=== PATIENT | female | born 1950 | race Two or more races ===

== ENCOUNTER 2024-08-21 10:55 | Emergency (ER) | payer MEDICARE, MEDICAID, SELFPAY ==
[2024-08-21 10:56] VITALS: BMI 23.6
[2024-08-21 11:31] VITALS: BP 146/79; PULSE 62; RESP 16; TEMP 36.8; O2SAT 98
--- NOTE | 2024-08-21 11:39 | XR_ITS ---
Examination: Hand, left 3 views Technique: Hand AP, oblique, lateral 3 views Date and time of exam: August 21 thousand 25, 1149 hrs. Indications: Patient fell yesterday with injury and And pain. Findings: Severe osteopenia. Spiral fracture fifth metacarpal shaft with no significant displacement No foreign body Impression: Acute fracture fifth metacarpal
--- NOTE | 2024-08-21 11:39 | XR_ITS ---
Examination: PA lateral chest 2 views Technique: Upright PA lateral chest 2 views Exam date and time: August 21, 2024 11:49 AM Comparison July 21, 2013 Indications: Patient fell yesterday with arm and chest pain Findings: Mild prominence left ventricle No pneumothorax Clavicles bones of the shoulders, RIBS intact Old appearing fracture right ninth rib posteriorly and 10th rib posteriorly but clinical correlation advised Impression: No pneumothorax or hemothorax Old appearing fractures right ninth and 10th ribs but clinical correlation advised, recommend right rib series follow-up as clinically warranted
--- NOTE | 2024-08-21 11:39 | XR_ITS ---
Examination: CT brain head without contrast. 2-D sagittal coronal reconstructions Date and time of exam:August 21, 2024 1211 hrs. Indications: Patient fell yesterday with injury to the head, head pain Comparison: November 18, 2010 CTDI: vol (mGy):44.4 DLP: (mGycm):854 Technique: Multiple CT axial sections of the brain have been obtained, 5 mm slice thickness. Contrast has not been administered. 2-D sagittal, coronal reconstructions have been obtained Low dose protocols were performed. One or more of the following dose reduction techniques were used; automated exposure control, adjustment of the mA and/or KV according to patient size, use of iterative reconstruction technique. Findings: No significant ventricular enlargement. Intra-axial or extra-axial hemorrhage density is not seen. No mass effect or midline shift Basal cisterns are not remarkable. Fourth ventricle is midline. Cranial vault intact. Impression: Negative for acute hemorrhage, mass effect or midline shift
--- NOTE | 2024-08-21 11:39 | XR_ITS ---
Examination: Knee bilateral, 6 views Technique: Knee AP, lateral, oblique each knee total 6 views Date and time of exam: August 21, 2024 1149 hrs. Indications: Patient fell yesterday with injury to both knees, bilateral knee pain. Findings: Prominent osteopenia On the oblique view subtle irregularity of the inferior left patella No dislocation Impression: Subtle irregularity inferior left patella, recommend CT left knee without contrast follow-up
--- NOTE | 2024-08-21 12:30 | XR_ITS ---
Examination: CT left knee, without contrast. 2-D sagittal reconstructions. 2-D coronal reconstructions. 3-D reconstructions. Date and time of exam:August 21, 2024, 0105 hrs. Indications: Patient fell today with injury to the knee, knee pain CTDI: vol (mGy):6.33 DLP: (mGycm):153 Technique: Multiple 1.25 mm axial sections of the left knee without intravenous contrast have been obtained. 2-D sagittal and coronal reconstructions have been obtained. 3-D reconstructions have been obtained. Low dose protocols were performed. One or more of the following dose reduction techniques were used; automated exposure control, adjustment of the mA and/or KV according to patient size, use of iterative reconstruction technique. Findings: Distal femur femoral condyles intact No patellar dislocation Widening of the medial patellofemoral joint Visualized tibia fibula intact Small fracture nondisplaced at the inferior aspect of the patella, coronal image 17 Impression: CT examination confirms small patellar fracture at the inferior aspect of the patella, coronal image 17, without significant displacement
--- NOTE | 2024-08-21 14:02 | PD.EDFALL ---
ED Fall Injury RME/HPI General Chief Complaint: Fall Stated Complaint: TRIPPED & FELL; HURT L) HAND; BRANDY KNEES Time Seen by Provider: 08/21/24 11:38 Arrival date/time: 08/21/24 10:55 73-year-old female presents to the emergency department today with complaints of creatinine will fall patient reports that she fell hit her chest and her head and injured her left hand and bilateral knees patient reports the fall was mechanical she was not having any chest pain or dizziness prior to the fall and none since Limitations: no limitations Related Data Previous Rx's ?Medication ?Instructions ?Recorded folic acid 1 mg tablet 1 mg PO QDAY #30 tabs 11/23/23 lisinopril 5 mg tablet 5 mg PO QDAY #30 tabs 11/23/23 pantoprazole 40 mg tablet,delayed 40 mg PO BID #60 tabs 11/23/23 release thiamine HCl (vitamin B1) 50 mg 50 mg PO QDAY #30 tabs 11/23/23 tablet hydrocodone 5 mg-acetaminophen 325 1 tab PO BID PRN pain #10 tabs 08/21/24 mg tablet Allergies Allergy/AdvReac Type Severity Reaction Status Date / Time ampicillin Allergy Unknown Rash Verified 08/21/24 11:00 Penicillins Allergy Unknown UNKNOWN Verified 08/21/24 11:00 Review of Systems Review of Systems Systems Reviewed: All systems reviewed, normal except as documented Constitutional Constitutional: Reports system reviewed and no additional complaints, except as documented, Denies fever(s) and Denies headache(s) Eyes Eyes: Reports system reviewed and no additional complaints, except as documented and Denies blurry vision ENT Ears, Nose, Mouth, and Throat: Reports system reviewed and no additional complaints, except as documented, Denies headache(s), Denies nasal congestion and Denies nasal discharge Cardiovascular Cardiovascular: Reports system reviewed and no additional complaints, except as documented, Denies chest pain and Denies dyspnea Respiratory Respiratory: Reports system reviewed and no additional complaints, except as documented, Denies chest congestion, Denies cough and Denies dyspnea Gastrointestinal Gastrointestinal: Reports system reviewed and no additional complaints, except as documented and Denies abdominal pain Integumentary/Breasts Skin/Breast: Reports system reviewed and no additional complaints, except as documented and Denies rash Neurologic Neurologic: Reports system reviewed and no additional complaints, except as documented, Reports as per HPI and Denies headache(s) Past Medical History Past Medical History NEUROLOGIC: Negative Neurological Disorders or Seizures CARDIAC: Positive Hypercholesterolemia and Hypertension; Negative Cardiac Disorders or Congestive Heart Failure RESPIRATORY: Positive Emphysema; Negative Chronic Obstructive Pulmonary Disease (COPD) or Asthma GASTROINTESTINAL: Positive Diverticulosis GENITOURINARY: Negative Genitourinary Disorders or Renal Disease REPRODUCTIVE: Positive Genital Herpes, Previous Pregnancies and Syphilis ENT: Positive Cataracts ENDOCRINE: Negative Endocrine Disorders, Diabetes Mellitus Type 1 or Diabetes Mellitus Type 2 HEMATOLOGIC: Positive Anemia; Negative Sickle Cell Disease PSYCHO/SOCIAL: Positive Depression OTHER HISTORY: Positive Chicken Pox, Measles and Mumps; Negative Hospitalization, Down Syndrome, Developmental Delay, Falls, Blood Transfusions, Blood Transfusion Reaction, Anesthesia Reactions or Cancer Surgical History SURGICAL: Positive Abdominal Surgery, Tubal Ligation and Section; Negative Cardiac Surgery Social History SMOKING STATUS: Current every day smoker SECOND HAND EXPOSURE: No ED Exam General Limitations: Present no limitations General appearance: Present alert and in no apparent distress Head Head exam: Present atraumatic Eye Eye exam: Present normal appearance, PERRL and EOMI ENT ENT exam: Present normal exam, normal oropharynx and mucous membranes moist Neck Neck exam: Present normal inspection, full ROM and trachea midline Chest Chest inspection: Present normal inspection and symmetric chest wall rise Respiratory Respiratory exam: Present normal lung sounds bilaterally Cardiovascular Cardiovascular exam: Present regular rate, normal rhythm and normal heart sounds Abdominal Exam Abdominal exam: Present soft and normal bowel sounds Extremities Exam Extremities exam: Present full ROM, tenderness (Bilateral knee pain, left hand pain), normal capillary refill and joint swelling; Absent pedal edema or calf tenderness Back Exam Back exam: Present normal inspection and full ROM Neurological Exam Neurological exam: Present alert, oriented X3 and CN II-XII intact Psychiatric Psychiatric exam: Present normal affect and normal mood Skin Skin exam: Present warm, dry, intact and normal color Course Quality Measures none Orders Category Date Time Status Crutches .NOW Care 08/21/24 14:58 Completed Splint / Immobilizer STAT Care 08/21/24 14:[address] head/brain wo con Stat Exams 08/21/24 11:[address] knee LT wo con Stat Exams 08/21/24 12:30 Completed XR chest 2V Stat Exams 08/21/24 11:39 Completed XR hand comp LT min 3V Stat Exams 08/21/24 11:39 Completed XR knee BI 3V Stat Exams 08/21/24 11:39 Completed Vital Signs Vital signs: Vital Signs Temperature 98.2 F 08/21/24 11:31 Pulse Rate 62 08/21/24 11:31 Respiratory Rate 16 08/21/24 11:31 Blood Pressure 146/79 H 08/21/24 11:31 Pulse Oximetry (%) 98 08/21/24 11:31 Oxygen Delivery Method Room Air 08/21/24 11:31 O2 saturation 98% room air within the limits Procedures -ED Splint Fabrication: Clinician Made Type: Volar Reason for Splint: Increase ROM, Improve Function and Optimal Positioning Circulation Distal to Splint: Yes Movement Distal to Splint: Yes Senation Distal to Splint: Yes Tolerance: Tolerates Well Fall MDM Narrative MDM Narrative:: 73-year-old female presents to the emergency department today with complaints of creatinine will fall patient reports that she fell hit her chest and her head and injured her left hand and bilateral knees patient reports the fall was mechanical she was not having any chest pain or dizziness prior to the fall and none since On exam patient well-appearing patient does not appear ill or toxic in no acute distress Patient does have swelling to the left hand and pain to the left knee Imaging of the head, chest bilateral knees and left hand obtained X-ray of the left hand consistent with fracture x-ray of the knee shows a possible fracture therefore CT scan was completed CT scan confirms patient is a fracture of her left knee CT scan of the head is normal Patient placed in a volar splint of her left hand patient reports that she has a walker at home does not want any crutches Patient discharged home in no distress to follow-up with primary care doctor in the next 24 to 48 hours and for any worsening symptoms to return to the ER immediately Patient data External records reviewed:: [facility] previous records Clinical information provided by:: patient Social determinants that could affect healthcare access:: none Patient has the following chronic illnesses:: See history How is presenting disease/condition affected by chronic disease/condition?: uneffected by Evaluation data The following diagnostics were reviewed and interpreted by me:: radiology exam(s) Lab and/or radiology exams considered but not ordered:: Radiology obtain Interpretation Summary: Reviewed by me Medications / Prescriptions Medications or Prescriptions considered but not ordered:: Given Medication administrations:: Given Consultations Consultation(s) initiated? (list below): No Diagnosis Fall Differential Diagnosis: other (Closed head injury, left hand pain) Most likely diagnosis given after review of the tests above:: Fracture left hand, closed head injury knee fracture Admission Indicated Admission indicated?: not indicated Admission Request Was there a request for admission?: No Disposition Plan Disposition Plan: Discharge Discharge Attestation Discharge Attestation: The patient and all family members were given an opportunity to ask questions and understood the discharge instructions. Discharge instructions specifically effects, indications for sooner follow up or return to the emergency department, and the expected course of current diagnosis. Patient condition: Stable Discharge Plan Plan Patient Disposition: HOME (Self Care) Disposition Comment: Stable Prescriptions/Referrals Prescriptions/Med Rec: New hydrocodone-acetaminophen 5-325 mg tablet 1 tab PO BID MDD 10 PRN (Reason: pain) Qty: 10 0RF No Action folic acid 1 mg Tablet 1 mg PO QDAY Qty: 30 0RF thiamine HCl (vitamin B1) 50 mg tablet 50 mg PO QDAY Qty: 30 0RF lisinopril 5 mg tablet 5 mg PO QDAY Qty: 30 0RF pantoprazole 40 mg tablet,delayed release (DR/EC) 40 mg PO BID Qty: 60 0RF Referrals: Bob Myers MD [Primary Care Provider] - 08/23/24 Problem List Clinical Impression: Fracture of left patella, Fracture of left hand Patient/Caregiver Discharge Instructions Education Materials: ED Fracture, Knee Additional Instructions: Please follow up with your primary care doctor in the next 24-48hrs for any worsening symptoms return here immediately Please follow-up with your primary care doctor soon as possible for worsening symptoms return immediately You have 2 separate fractures which need to be evaluated by outpatient orthopedist Print Language: Indian Stand Alone Forms: Ling Award Info., Patient Portal Info Letter PA/ENOCH Supervising Physician ROLAND/ENOCH Supervising Physician: Dr. whitlock
--- NOTE | 2024-08-21 15:43 | PC.NURSE ---
patient refused crutches, stated she uses a walker at home. provider aware.
== END 2024-08-21 15:44 | disposition home or self-care (01) ==
PROVIDERS: Emergency Provider Family Medicine; PCP Family Medicine
DX: S82.002A Unspecified fracture of left patella, initial encounter for closed fracture (principal); S62.307A Unspecified fracture of fifth metacarpal bone, left hand, initial encounter for closed fracture; W01.0XXA Fall on same level from slipping, tripping and stumbling without subsequent striking against object, initial encounter
CPT/HCPCS: 70450; 71046; 73130; 73562; 73700; 99284

== ENCOUNTER 2024-09-01 08:38 | Outpatient (AMB) | payer MEDICARE, MEDICAID, SELFPAY ==
[2024-09-01 09:12] VITALS: BP 153/80; PULSE 83; RESP 20; TEMP 36.5; O2SAT 95; BMI 23.2
--- NOTE | 2024-09-01 09:12 | PD.ORTHCLVIS ---
Vital signs 09/01/24 09:12 Height 1.55 m Height Method Stated Weight 55.792 kg Weight Measurement Method Standing Scale BMI 23.2 BP 153/80 H Blood Pressure Source Automatic Cuff Blood Pressure Location Right Upper Arm Position Sitting Respiration 20 Pulse 83 Pulse Source Monitor Temp 97.7 F Temp Source Temporal Artery Scan Pulse Oximetry (%) 95 Oxygen Delivery Method Room Air Med/Allergies Allergies & Medications Allergies ampicillin Allergy (Unknown, Verified 09/01/24 09:12) Rash Penicillins Allergy (Unknown, Verified 09/01/24 09:12) UNKNOWN Medication Reconciliation folic acid 1 mg tablet 1 mg PO QDAY #30 tabs 11/23/23 [Rx Confirmed 09/01/24] lisinopril 5 mg tablet 5 mg PO QDAY #30 tabs 11/23/23 [Rx Confirmed 09/01/24] pantoprazole 40 mg tablet,delayed release 40 mg PO BID #60 tabs 11/23/23 [Rx Confirmed 09/01/24] thiamine HCl (vitamin B1) 50 mg tablet 50 mg PO QDAY #30 tabs 11/23/23 [Rx Confirmed 09/01/24] hydrocodone 5 mg-acetaminophen 325 mg tablet 1 tab PO BID PRN pain #10 tabs 08/21/24 [Rx Confirmed 09/01/24] atorvastatin 40 mg tablet 40 mg PO QDAY 09/01/24 [History Confirmed 09/01/24] ondansetron 4 mg disintegrating tablet 4 mg PO Q6H 09/01/24 [History Confirmed 09/01/24] Exam Exam Patient is in no acute distress and is cooperative with the examination today. Breathing is nonlabored. Patient has a normal mood and affect. The patient has a gait that is nonantalgic Bilateral extremities were evaluated and demonstrates sensation intact to light touch. Palpable pedal pulses are present. No significant edema is present. Bilateral hips were examined. The patient has no pain with log roll of the hips. Internal rotation to 30 degrees and external rotation to 30 degrees is painless. Negative FADIR. Right knee was examined today. The right knee is in reasonable alignment. Range of motion from 0-120 degrees. Knee is stable to varus and valgus as well as AP translation with <5mm. Patient has a negative McMurrays. There is no pain with patellofemoral compression and no crepitus noted. The knee is nontender to palpation. Left knee was examined today. The left knee is in neutral alignment. Range of motion from 0-120 degrees. Knee is stable to varus and valgus as well as AP translation with <5mm. Patient has a negative McMurrays. There is no pain with patellofemoral compression and no crepitus noted. The knee is tender to palpation over the patella. She actually has full range of motion and has no extensor lag. She is able to perform a straight leg raise X-rays and the CT demonstrates a inferior nondisplaced patella fracture Assessment and Plan Problem List (1) Patella fracture: Status: Acute Plan: Patient is a pleasant 73-year-old female with a nondisplaced patella fracture. We will treat her nonoperatively. She should be in full extension for 6 weeks. We will mobilize her today. Will also get x-rays and see her in 2 weeks to make sure that the fracture has not shifted Advanced Care Planning Discussion Advance care planning discussed with:: patient Office Procedures GNS Level of Care Nursing/Assessment Patient Status: Established Patient Nursing Assessment/Reassesment: Medication Reconciliation, Update PMH in EMR and Vital Signs Coordination of Care: Complex Care and Chronic Disease 1-5, Education Complex Pt/Fam, Consent,records obtained, informed consent, Lab and Imaging orders, Results/Orders obtained and Staff clarify orders Established Patient Charge Established Patient Point Assignment: 110 Established Patient Point Charge: EP Level 3 (80-115) MA Intake Visit Data Collection New Patient or Established: Established Patient (seen at [facility] within 3 years) Reason for Visit:: LEFT PATELLA FX Seen by Clinical Staff ONLY (RN/MA): No Verbal consent obtained for Telemed visit?: No Community Health Navigator Required: No PCP or OBGYN visit in last 3 months: Yes Hx Now: No Do You Feel Safe at Home: Yes Authorities Contacted: N/A Questionairres Past Medical History Past Medical History Have you ever been diagnosed with any of the following: Neurological Problems Seizures: No Cardiology Problems Hypercholesterolemia: Yes Congestive Heart Failure: No Hypertension: Yes Respiratory Problems Chronic Obstructive Pulmonary Disease (COPD): No Asthma: No Emphysema: Yes Stomache/Intestinal Problems Diverticulosis: Yes Genital/Urinary Problems Renal Disease: No Reproductive Problems Genital Herpes: Yes Previous Pregnancies: Yes Syphilis: Yes Head,Eye,Nose,Throat Problems Cataracts: Yes Endocrine Problems Diabetes Mellitus Type 1: No Diabetes Mellitus Type 2: No Blood Problems Anemia: Yes Sickle Cell Disease: No Psychologic Problems Depression: Yes Other Problems Hospitalization: No Down Syndrome: No Developmental Delay: No Falls: No Blood Transfusions: No Blood Transfusion Reaction: No Anesthesia Reactions: No Chicken Pox: Yes Measles: Yes Mumps: Yes Cancer: No Subjective Visit Visit for: follow up visit and knee Immunization / Flu Flu Vaccine in the Last 12 Months: Yes Flu Vaccine Exclusion Criteria: Already Received History of Present Illness Chief complaint: Left knee pain Date of injury / onset of symptoms: 08/21 Patient is a 73-year-old female with left knee pain after ground-level fall. She was found to have a nondisplaced patella fracture. This was treated nonoperatively and she was given no knee immobilizer and was told she can walk on it. She was not immobilized at any point. Personal History Occupation: RETIRED [employer] PMH: smoker, cigarettes qd (specify) (2 PACKS ) and BMI BMI Counceling provided: Yes Pain Pain level (0-10): 10 Pain duration: COMES AND GOES Pain location: anterior Pain quality: sharp, dull and aching Pain timing: increases with activity Associated signs & symptoms: stiffness Ambulatory data Ambulatory device: cane Treatments Improvement with previous injections: No Improvement with PT: No Improvement with NSAIDS: no Review of Systems Review of Systems: All systems negative unless otherwise noted in HPI.
--- NOTE | 2024-09-01 09:13 | XR_ITS ---
Examination: Left knee 2 views TECHNIQUE: Weightbearing AP lateral left knee 2 views Exam date and time: September 01, 2024 0955 hours INDICATIONS: Knee pain after injury to the knee 18 years ago. FINDINGS: Prominent osteopenia Moderate narrowing lateral joint space Advanced narrowing patellofemoral joint No fracture IMPRESSION: Advanced narrowing patellofemoral joint
== END 2024-09-01 09:25 | disposition home or self-care (01) ==
LOC: HODSRG 08:38
PROVIDERS: PCP Internal Medicine; Referring Provider Internal Medicine; Supervising Provider Orthopaedic Surgery Adult Reconstructive Orthopaedic Surgery; Visit Provider Orthopaedic Surgery Adult Reconstructive Orthopaedic Surgery
DX: S82.002D Unspecified fracture of left patella, subsequent encounter for closed fracture with routine healing (principal); W18.30XD Fall on same level, unspecified, subsequent encounter; I10 Essential (primary) hypertension; E78.00 Pure hypercholesterolemia, unspecified; J43.9 Emphysema, unspecified
CPT/HCPCS: 73564; 99213; G0463

== ENCOUNTER 2024-09-16 08:04 | Outpatient (AMB) | payer MEDICARE, SELFPAY ==
[2024-09-16 08:17] VITALS: BP 162/72; PULSE 71; RESP 19; TEMP 36.4; O2SAT 98; BMI 23.1
--- NOTE | 2024-09-16 08:17 | ORTHONT_ITS ---
Vital signs 09/16/24 08:17 Height 1.55 m Height Method Stated Weight 55.537 kg Weight Measurement Method Standing Scale BMI 23.1 BP 162/72 H Blood Pressure Source Automatic Cuff Blood Pressure Location Right Upper Arm Position Sitting Respiration 19 Pulse 71 Pulse Source Monitor Temp 97.6 F Temp Source Temporal Artery Scan Pulse Oximetry (%) 98 Oxygen Delivery Method Room Air Med/Allergies Allergies & Medications Allergies ampicillin Allergy (Unknown, Verified 09/16/24 08:18) Rash Penicillins Allergy (Unknown, Verified 09/16/24 08:18) UNKNOWN Medication Reconciliation folic acid 1 mg tablet 1 mg PO QDAY #30 tabs 11/23/23 [Rx Confirmed 09/16/24] lisinopril 5 mg tablet 5 mg PO QDAY #30 tabs 11/23/23 [Rx Confirmed 09/16/24] pantoprazole 40 mg tablet,delayed release 40 mg PO BID #60 tabs 11/23/23 [Rx Confirmed 09/16/24] thiamine HCl (vitamin B1) 50 mg tablet 50 mg PO QDAY #30 tabs 11/23/23 [Rx Confirmed 09/16/24] hydrocodone 5 mg-acetaminophen 325 mg tablet 1 tab PO BID PRN pain #10 tabs 08/21/24 [Rx Confirmed 09/16/24] atorvastatin 40 mg tablet 40 mg PO QDAY 09/01/24 [History Confirmed 09/16/24] ondansetron 4 mg disintegrating tablet 4 mg PO Q6H 09/01/24 [History Confirmed 09/16/24] Exam Exam Patient is in no acute distress and is cooperative with the examination today. Breathing is nonlabored. Patient has a normal mood and affect. The patient has a gait that is nonantalgic Bilateral extremities were evaluated and demonstrates sensation intact to light touch. Palpable pedal pulses are present. No significant edema is present. Bilateral hips were examined. The patient has no pain with log roll of the hips. Internal rotation to 30 degrees and external rotation to 30 degrees is painless. Negative FADIR. Right knee was examined today. The right knee is in reasonable alignment. Range of motion from 0-120 degrees. Knee is stable to varus and valgus as well as AP translation with <5mm. Patient has a negative McMurrays. There is no pain with patellofemoral compression and no crepitus noted. The knee is nontender to palpation. Left knee was examined today. The left knee is in neutral alignment. Range of motion from 0-120 degrees. Knee is stable to varus and valgus as well as AP translation with <5mm. Patient has a negative McMurrays. There is no pain with patellofemoral compression and no crepitus noted. The knee is tender to palpation over the patella. She actually has full range of motion and has no extensor lag. She is able to perform a straight leg raise X-rays and the CT demonstrates a inferior nondisplaced patella fracture. Prior x-rays from 09/01/2024 demonstrates no significant displacement of the fracture Assessment and Plan Problem List (1) Patella fracture: Status: Acute Plan: Patient is a pleasant 73-year-old female with a nondisplaced patella fracture. We will treat her nonoperatively. She has not been compliant with the knee immobilizer. Fortunately is a nondisplaced fracture in her extensor mechanism is intact. I will order new x-rays We will see her back after her new x-rays are done Advanced Care Planning Discussion Advance care planning discussed with:: patient Office Procedures GNS Level of Care Nursing/Assessment Patient Status: Established Patient Nursing Assessment/Reassesment: Medication Reconciliation, Update PMH in EMR and Vital Signs Coordination of Care: Complex Care and Chronic Disease 1-5, Education Complex Pt/Fam, Consent,records obtained, informed consent, Lab and Imaging orders, Results/Orders obtained and Staff clarify orders Established Patient Charge Established Patient Point Assignment: 110 Established Patient Point Charge: EP Level 3 (80-115) MA Intake Visit Data Collection New Patient or Established: Established Patient (seen at [facility] within 3 years) Reason for Visit:: F/U XRAYS Seen by Clinical Staff ONLY (RN/MA): No Verbal consent obtained for Telemed visit?: No Customer Service Engineer Required: No PCP or OBGYN visit in last 3 months: Yes Hx Now: No Do You Feel Safe at Home: Yes Authorities Contacted: N/A Questionairres Past Medical History Past Medical History Have you ever been diagnosed with any of the following: Neurological Problems Seizures: No Cardiology Problems Hypercholesterolemia: Yes Congestive Heart Failure: No Hypertension: Yes Respiratory Problems Chronic Obstructive Pulmonary Disease (COPD): No Asthma: No Emphysema: Yes Stomache/Intestinal Problems Diverticulosis: Yes Genital/Urinary Problems Renal Disease: No Reproductive Problems Genital Herpes: Yes Previous Pregnancies: Yes Syphilis: Yes Head,Eye,Nose,Throat Problems Cataracts: Yes Endocrine Problems Diabetes Mellitus Type 1: No Diabetes Mellitus Type 2: No Blood Problems Anemia: Yes Sickle Cell Disease: No Psychologic Problems Depression: Yes Other Problems Hospitalization: No Down Syndrome: No Developmental Delay: No Falls: No Blood Transfusions: No Blood Transfusion Reaction: No Anesthesia Reactions: No Chicken Pox: Yes Measles: Yes Mumps: Yes Cancer: No Subjective Visit Visit for: follow up visit and knee Immunization / Flu Flu Vaccine in the Last 12 Months: No Flu Vaccine Exclusion Criteria: No Exclusion Criteria History of Present Illness Chief complaint: F/U XRAYS Date of injury / onset of symptoms: 08/21 Patient is a 73-year-old female with left knee pain after ground-level fall. She was found to have a nondisplaced patella fracture. This was treated nonoperatively and she was given no knee immobilizer and was told she can walk on it. She is not wearing her knee immobilizer today. She continues to smoke. Personal History Occupation: DISABLED Red flag PMH: smoker, cigarettes qd (specify) and BMI BMI Counceling provided: Yes Pain Pain level (0-10): 6 Pain duration: ALL DAY Pain location: inside (medial), outside (lateral), anterior and posterior Pain quality: sharp, dull and aching Pain timing: night, increases with activity and stairs Associated signs & symptoms: weakness Ambulatory data Ambulatory device: cane Treatments Improvement with previous injections: No Improvement with PT: No Improvement with NSAIDS: no Review of Systems Review of Systems: All systems negative unless otherwise noted in HPI.
--- NOTE | 2024-09-16 08:30 | XR_ITS ---
Examination: Bilateral AP knees single view Left knee PA standing flexion, standing lateral, axial left knee 3 views TECHNIQUE: Bilateral AP knees standing single view Left knee PA standing sections, standing lateral, axial left knee total 3 views Exam date and time: September 16, 2024 0841 hours INDICATIONS: Patient fell one month ago with injury to the left knee, left knee pain. FINDINGS: Prominent osteopenia Healed fracture distal right femoral shaft Mild narrowing medial joint space right knee Moderate narrowing lateral joint space right knee Moderate narrowing lateral joint space left knee No left knee fracture or dislocation Mild osteophyte is left patellofemoral joint IMPRESSION: Moderate narrowing lateral joint space right knee Moderate narrowing lateral joint space left knee
== END 2024-09-16 08:46 | disposition home or self-care (01) ==
LOC: HODSRG 08:04
PROVIDERS: PCP Internal Medicine; Referring Provider Internal Medicine; Supervising Provider Orthopaedic Surgery Adult Reconstructive Orthopaedic Surgery; Visit Provider Orthopaedic Surgery Adult Reconstructive Orthopaedic Surgery
DX: S82.009D Unspecified fracture of unspecified patella, subsequent encounter for closed fracture with routine healing (principal); W19.XXXD Unspecified fall, subsequent encounter; I10 Essential (primary) hypertension; E78.00 Pure hypercholesterolemia, unspecified
CPT/HCPCS: 73564; 99213; G0463

== ENCOUNTER → 2024-09-23 | Outpatient (CLI) | payer MEDICARE, SELFPAY ==
--- NOTE | 2024-09-23 | XR_ITS ---
Examination: Wrist, left 3 views Technique: Wrist AP, oblique, lateral 3 views Date and time of exam: September 23, 2024 1226 hours Comparison August 21, 2024 INDICATIONS: Acute fracture fifth metacarpal August 21, 2024 FINDINGS: Partial healing fracture fifth metacarpal with stable and satisfactory alignment IMPRESSION: Partial healing fracture fifth metacarpal with stable and satisfactory alignment
--- NOTE | 2024-09-23 | XR_ITS ---
Examination: Hand, left 3 views Technique: Hand AP, oblique, lateral 3 views Date and time of exam: September 23, 2024 at 1226 hours Comparison August 21, 2024 INDICATIONS: Acute fracture fifth metacarpal August 21, 2024 FINDINGS: Partial healing fracture fifth metacarpal with stable and satisfactory alignment IMPRESSION: Partial healing fracture fifth metacarpal with stable and satisfactory alignment
== END | disposition home or self-care (01) ==
LOC: CDIM 11:01
DX: S62.307A Unspecified fracture of fifth metacarpal bone, left hand, initial encounter for closed fracture (principal); X58.XXXA Exposure to other specified factors, initial encounter
CPT/HCPCS: 73110; 73130

== ENCOUNTER 2024-10-11 07:54 | Outpatient (AMB) | payer MEDICARE, SELFPAY ==
[2024-10-11 08:06] VITALS: BP 105/68; PULSE 67; RESP 18; TEMP 36.3; O2SAT 95; BMI 22.5
--- NOTE | 2024-10-11 08:06 | PD.ORTHCLVIS ---
Vital signs 10/11/24 08:06 Height 1.55 m Height Method Stated Weight 54.176 kg Weight Measurement Method Standing Scale BMI 22.5 BP 105/68 Blood Pressure Source Automatic Cuff Blood Pressure Location Right Upper Arm Position Sitting Respiration 18 Pulse 67 Pulse Source Monitor Temp 97.3 F Temp Source Temporal Artery Scan Pulse Oximetry (%) 95 Oxygen Delivery Method Room Air Med/Allergies Allergies & Medications Allergies ampicillin Allergy (Unknown, Verified 09/16/24 08:18) Rash Penicillins Allergy (Unknown, Verified 09/16/24 08:18) UNKNOWN Medication Reconciliation folic acid 1 mg tablet 1 mg PO QDAY #30 tabs 11/23/23 [Rx Confirmed 10/11/24] lisinopril 5 mg tablet 5 mg PO QDAY #30 tabs 11/23/23 [Rx Confirmed 10/11/24] pantoprazole 40 mg tablet,delayed release 40 mg PO BID #60 tabs 11/23/23 [Rx Confirmed 10/11/24] thiamine HCl (vitamin B1) 50 mg tablet 50 mg PO QDAY #30 tabs 11/23/23 [Rx Confirmed 10/11/24] hydrocodone 5 mg-acetaminophen 325 mg tablet 1 tab PO BID PRN pain #10 tabs 08/21/24 [Rx Confirmed 10/11/24] atorvastatin 40 mg tablet 40 mg PO QDAY 09/01/24 [History Confirmed 10/11/24] ondansetron 4 mg disintegrating tablet 4 mg PO Q6H 09/01/24 [History Confirmed 10/11/24] Exam Exam Patient is in no acute distress and is cooperative with the examination today. Breathing is nonlabored. Patient has a normal mood and affect. The patient has a gait that is nonantalgic Bilateral extremities were evaluated and demonstrates sensation intact to light touch. Palpable pedal pulses are present. No significant edema is present. Bilateral hips were examined. The patient has no pain with log roll of the hips. Internal rotation to 30 degrees and external rotation to 30 degrees is painless. Negative FADIR. Right knee was examined today. The right knee is in reasonable alignment. Range of motion from 0-120 degrees. Knee is stable to varus and valgus as well as AP translation with <5mm. Patient has a negative McMurrays. There is no pain with patellofemoral compression and no crepitus noted. The knee is nontender to palpation. Left knee was examined today. The left knee is in neutral alignment. Range of motion from 0-120 degrees. Knee is stable to varus and valgus as well as AP translation with <5mm. Patient has a negative McMurrays. There is no pain with patellofemoral compression and no crepitus noted. The knee is tender to palpation over the patella. She actually has full range of motion and has no extensor lag. She is able to perform a straight leg raise X-rays and the CT demonstrates a inferior nondisplaced patella fracture. Prior x-rays from 09/01/2024 demonstrates no significant displacement of the fracture. New xrays dated 09/16/2024 demonstrate no displacement of the fracture Assessment and Plan Problem List (1) Patella fracture: Status: Acute Plan: Patient is a pleasant 73-year-old female with a nondisplaced patella fracture. We will treat her nonoperatively. She is doing well and does not want to do physical therapy. She can see me as needed at this point. Advanced Care Planning Discussion Advance care planning discussed with:: patient Office Procedures GNS Level of Care Nursing/Assessment Patient Status: Established Patient Nursing Assessment/Reassesment: Medication Reconciliation, Update PMH in EMR and Vital Signs Coordination of Care: Complex Care and Chronic Disease 1-5, Education Complex Pt/Fam, Consent,records obtained, informed consent, Results/Orders obtained and Staff clarify orders Established Patient Charge Established Patient Point Assignment: 95 Established Patient Point Charge: EP Level 3 (80-115) MA Intake Visit Data Collection New Patient or Established: Established Patient (seen at [facility] within 3 years) Reason for Visit:: F/U ON XRAYS Seen by Clinical Staff ONLY (RN/MA): No Verbal consent obtained for Telemed visit?: No Supervisor Residential Required: No PCP or OBGYN visit in last 3 months: Yes Hx Now: No Do You Feel Safe at Home: Yes Authorities Contacted: N/A Questionairres Past Medical History Past Medical History Have you ever been diagnosed with any of the following: Neurological Problems Seizures: No Cardiology Problems Hypercholesterolemia: Yes Congestive Heart Failure: No Hypertension: Yes Respiratory Problems Chronic Obstructive Pulmonary Disease (COPD): No Asthma: No Emphysema: Yes Stomache/Intestinal Problems Diverticulosis: Yes Genital/Urinary Problems Renal Disease: No Reproductive Problems Genital Herpes: Yes Previous Pregnancies: Yes Syphilis: Yes Head,Eye,Nose,Throat Problems Cataracts: Yes Endocrine Problems Diabetes Mellitus Type 1: No Diabetes Mellitus Type 2: No Blood Problems Anemia: Yes Sickle Cell Disease: No Psychologic Problems Depression: Yes Other Problems Hospitalization: No Down Syndrome: No Developmental Delay: No Falls: No Blood Transfusions: No Blood Transfusion Reaction: No Anesthesia Reactions: No Chicken Pox: Yes Measles: Yes Mumps: Yes Cancer: No Subjective Visit Visit for: follow up visit, knee and x-rays Immunization / Flu Flu Vaccine in the Last 12 Months: No Flu Vaccine Exclusion Criteria: No Exclusion Criteria History of Present Illness Chief complaint: F/U XRAYS Date of injury / onset of symptoms: 08/21 Patient is a 73-year-old female with left knee pain after ground-level fall. She was found to have a nondisplaced patella fracture. This was treated nonoperatively and she was given no knee immobilizer and was told she can walk on it. She is not wearing her knee immobilizer today. She continues to smoke. She reports that she is doing well Personal History Occupation: DISABLED Red flag PMH: smoker BMI Counceling provided: No Pain Pain level (0-10): 3 Pain duration: ALL DAY Pain location: inside (medial), outside (lateral), anterior and posterior Pain quality: dull and aching Pain timing: increases with activity Associated signs & symptoms: stiffness Ambulatory data Ambulatory device: cane Treatments Improvement with previous injections: No Improvement with PT: No Improvement with NSAIDS: no Review of Systems Review of Systems: All systems negative unless otherwise noted in HPI.
== END 2024-10-11 08:22 | disposition home or self-care (01) ==
LOC: HODSRG 07:54
PROVIDERS: PCP Internal Medicine; Referring Provider Internal Medicine; Supervising Provider Orthopaedic Surgery Adult Reconstructive Orthopaedic Surgery; Visit Provider Orthopaedic Surgery Adult Reconstructive Orthopaedic Surgery
DX: S82.002D Unspecified fracture of left patella, subsequent encounter for closed fracture with routine healing (principal); W18.30XD Fall on same level, unspecified, subsequent encounter; I10 Essential (primary) hypertension; E78.00 Pure hypercholesterolemia, unspecified
CPT/HCPCS: 99213; G0463

== ENCOUNTER → 2024-11-23 | Outpatient (CLI) | payer MEDICARE, SELFPAY ==
--- NOTE | 2024-11-23 15:28 | XR_ITS ---
Examination: Hand, left 3 views Technique: Hand AP, oblique, lateral 3 views Date and time of exam: November 23, 2024 1531 hours INDICATIONS: Patient fell 3 months ago with injury and, hand pain. FINDINGS: Subacute healing fracture fifth metacarpal with no significant displacement Flexion deformity, subacute healing appearing fracture distal aspect proximal phalanx fifth digit No opaque foreign body IMPRESSION: Subacute healing fracture fifth metacarpal Subacute healing fracture distal aspect proximal phalanx fifth digit
== END | disposition home or self-care (01) ==
PROVIDERS: PCP Family Medicine; Referring Provider Nurse Practitioner Gerontology; Visit Provider Nurse Practitioner Gerontology
DX: S62.307A Unspecified fracture of fifth metacarpal bone, left hand, initial encounter for closed fracture (principal); S62.637A Displaced fracture of distal phalanx of left little finger, initial encounter for closed fracture; W19.XXXA Unspecified fall, initial encounter
CPT/HCPCS: 73130

== ENCOUNTER 2025-03-28 14:00 | Outpatient (RCR) | payer MEDICARE, MEDICAID, SELFPAY ==
--- NOTE | 2025-03-09 13:47 | PTNOTE_ITS ---
PT OP Initial Eval Patient Information Outpatient Physical Therapy Treatment Date: 03/09/25 Visit Reasons: left hand contracture Medical Diagnosis: M79.642 M24.542 Treatment Dx #1: L hand pain Treatment Dx #2: L hand weakness Start of Care: 03/09/25 Date of Onset: 01/03/25 Smoking Status Smoking Status: Current every day smoker Cessation Counseling Provided: STARRILIA was advised that quitting smoking is the single most important factor to protect the health of themselves and their family. Discussed the benefits of quitting smoking with patient. Encouraged patient to quit smoking and provided Cessation assistance materials and resources. Tobacco Use: Cigarette Years smoked: 62 Are you interested in quitting?: Yes Would you like additional Smoking Cessation Counseling?: No Initial Assessment Subjective: Pt is 74 yr old female s/p L small fingers dupuytren fasiectomy, Z plasty, release of PIP joint contracture. Pt reports pain with gripping the hand, lifting things and to fully extend the 4th and 5th digits. This limits HH chore tolerance to about 5-10 mins. PLOF: prior to onset of hand pain pt had full use of the hand with ADL's and HH chores. PMH: HTN, allergies Pt goal: to do more HH chores with the L hand Objective: [place] associate medical director strength: R: 60 lbs, L: 40 lbs 5th digit flexion: MCP and PIP: 90 deg DIP: 40 deg Extension: PIP joint: -33 deg flexion contracture Assessment: Pt presents with flexion contracture of L 5th digit and decreased associate medical director strength. Pt requires skilled therapy and has fair rehab potential to meet goals. Short Term and Children'S Book Author Goals 1. Ind with HEP 2. Improved HH chore tolerance to 20 mins 3. Improved L hand associate medical director strength to at least 50 lbs 4. Improved extension of PIP joint to at least -20 deg Treatment Plan 1. Manual therapy ? 2. Therex ? 3. Modalities as indicated, moist heat, ice, TENS Frequency and Duration: 2x a week for 12 visits plus the evaluation Certification Dates: 03/09/25 to 06/07/25 Procedure Charges OP PT Eval Mod Complex 30 minutes: Yes
--- NOTE | 2025-03-16 14:52 | PT.ODAYNRPT ---
PT Outpatient Daily Note OP Daily Note Outpatient Physical Therapy Treatment Date: 03/16/25 Visit Reasons: left hand contracture Subjective: Same as time of evaluation Objective: See F/S for therex MT: L pinky finger PIP extension mobs x5' Assessment: Pain and myofascial tenderness limit L pinky PIP extension ROM Plan: Continue per POC Length of Time (minutes) of Treatment: 30 Minutes Procedure Charges Therapeutic Exercise 30 minutes: Yes
--- NOTE | 2025-03-28 14:54 | PTNOTE_ITS ---
PT Outpatient Daily Note OP Daily Note Outpatient Physical Therapy Treatment Date: 03/28/25 Visit Reasons: left hand contracture Subjective: Pt reports Jazmín barnes is doing a little better but still not where she would like. As per pt she is compliant with HEP. Objective: Please see flow sheet for ther ex list. Assessment: Pt guarded during PROM and TTP on and near 5th digit PIP joint. Plan: Continue with poC. Length of Time (minutes) of Treatment: 30 Minutes CORPORATE TECHNICAL RECRUITER Service Modifier Method I: Divide the number of min of care provided by the CORPORATE TECHNICAL RECRUITER/FLAME CUTTING MACHINE OPERATOR HELPER by the total min of care provided then multiply by 100. If greater than 11 percent modifier is required. Method II: Divide the total time of care provided to patient by 10 (round to the nearest whole number) and add 1 min. to set the minimum time requirement. If treatment total was 60 min., then 10% of 6 min PT CQ modifier applied: CQ Modifier applied Procedure Charges Therapeutic Exercise 30 minutes: Yes
== END 2025-04-02 23:59 | disposition home or self-care (01) ==
LOC: CPTX 14:00
PROVIDERS: PCP Family Medicine; Referring Provider Surgery Surgery of the Hand; Visit Provider Surgery Surgery of the Hand
DX: M79.642 Pain in left hand (principal); M24.542 Contracture, left hand; R53.1 Weakness; Z71.6 Tobacco abuse counseling; F17.210 Nicotine dependence, cigarettes, uncomplicated; Z98.890 Other specified postprocedural states; I10 Essential (primary) hypertension
CPT/HCPCS: 97110; 97162

== ENCOUNTER 2025-05-02 11:00 | Outpatient (RCR) | payer MEDICARE, MEDICAID, SELFPAY ==
--- NOTE | 2025-04-04 16:14 | PTNOTE_ITS ---
PT Outpatient Daily Note OP Daily Note Outpatient Physical Therapy Treatment Date: 04/04/25 Visit Reasons: left hand pain Subjective: Pt reports L 5th digit is slowly progressing, notices swelling and redness has gone down but continues to be stiff. Objective: Please see flow sheet for ther ex list. Assessment: ROm of 5th digit slowly improving. Plan: Continue with pOC. Length of Time (minutes) of Treatment: 30 Minutes PRESS TENDER SMOKE SIGNAL Service Modifier Method I: Divide the number of min of care provided by the PRESS TENDER SMOKE SIGNAL/ERNESTINE by the total min of care provided then multiply by 100. If greater than 11 percent modifier is required. Method II: Divide the total time of care provided to patient by 10 (round to the nearest whole number) and add 1 min. to set the minimum time requirement. If treatment total was 60 min., then 10% of 6 min PT CQ modifier applied: CQ Modifier applied Procedure Charges Therapeutic Exercise 30 minutes: Yes
--- NOTE | 2025-04-11 12:07 | PT.ODAYNRPT ---
PT Outpatient Daily Note OP Daily Note Outpatient Physical Therapy Treatment Date: 04/11/25 Visit Reasons: left hand pain Subjective: Less pain since starting therapy of pinky but still limited movement Objective: See F/S for therex Assessment: Pain and myofascial tenderness limit L pinky PIP extension ROM Plan: Continue per POC Length of Time (minutes) of Treatment: 30 Minutes Procedure Charges Therapeutic Exercise 30 minutes: Yes
--- NOTE | 2025-04-18 11:18 | PT.ODAYNRPT ---
PT Outpatient Daily Note OP Daily Note Outpatient Physical Therapy Treatment Date: 04/18/25 Visit Reasons: left hand pain Subjective: Pt reports pinky is still stiff. Objective: Please see flow sheet for ther ex list. Assessment: Performed PROM to L 5th digit into extension, hard end feel with little mobility achieved. Plan: Continue with poC. Length of Time (minutes) of Treatment: 30 Minutes Procedure Charges Therapeutic Exercise 30 minutes: Yes
--- NOTE | 2025-04-25 13:13 | PT.ODAYNRPT ---
PT Outpatient Daily Note OP Daily Note Outpatient Physical Therapy Treatment Date: 04/25/25 Visit Reasons: left hand pain Subjective: Pt reports L hand is doing ok, still feels pinky finger is stiff. Objective: Please see flow sheet for ther ex list. Assessment: Pt present in clinic with decrease swelling of 5th PIP digit compared to previous sessions but extension continues to be limited. Plan: Continue with POC. Length of Time (minutes) of Treatment: 30 Minutes CERTIFIED ALCOHOL AND DRUG COUNSELOR Service Modifier Method I: Divide the number of min of care provided by the CERTIFIED ALCOHOL AND DRUG COUNSELOR/ERNESTINE by the total min of care provided then multiply by 100. If greater than 11 percent modifier is required. Method II: Divide the total time of care provided to patient by 10 (round to the nearest whole number) and add 1 min. to set the minimum time requirement. If treatment total was 60 min., then 10% of 6 min PT CQ modifier applied: CQ Modifier applied Procedure Charges Therapeutic Exercise 30 minutes: Yes
--- NOTE | 2025-05-02 11:58 | PTNOTE_ITS ---
PT Outpatient Daily Note OP Daily Note Outpatient Physical Therapy Treatment Date: 05/02/25 Visit Reasons: left hand pain Subjective: Pt reports L hand is doing a little better. Pt mentioned that she followed up with her surgeon who recommend she continue working and massaging scar tissue. Objective: Please see flow sheet for ther ex list. Assessment: Performed scar mobs and PROM of 5th digit PIP joint, minimal TTP. Plan: Continue with poC. Length of Time (minutes) of Treatment: 30 Minutes MICRO COMPUTER DATA PROCESSOR Service Modifier Method I: Divide the number of min of care provided by the MICRO COMPUTER DATA PROCESSOR/REGISTERED NURSE PRACTITIONER by the total min of care provided then multiply by 100. If greater than 11 percent modifier is required. Method II: Divide the total time of care provided to patient by 10 (round to the nearest whole number) and add 1 min. to set the minimum time requirement. If treatment total was 60 min., then 10% of 6 min PT CQ modifier applied: CQ Modifier applied Procedure Charges Therapeutic Exercise 30 minutes: Yes
== END 2025-05-03 23:59 | disposition home or self-care (01) ==
LOC: CPTX 11:00
PROVIDERS: PCP Surgery Surgery of the Hand; Referring Provider Surgery Surgery of the Hand; Visit Provider Surgery Surgery of the Hand
DX: M79.642 Pain in left hand (principal); M24.542 Contracture, left hand; R53.1 Weakness; F17.210 Nicotine dependence, cigarettes, uncomplicated; Z71.6 Tobacco abuse counseling; Z98.890 Other specified postprocedural states; I10 Essential (primary) hypertension
CPT/HCPCS: 97110